=== PATIENT | male | born 1985 | race Caucasian/White ===

== ENCOUNTER 2023-06-16 12:00 | Observation (INO) | payer OTHER ==
[~2023-06-16] VITALS: Ht 182.9 cm; Wt 83.0 kg
[2023-06-16] MEDS: normal saline 1000ML IV soln IV ONE (13:16)
[2023-06-16 13:59] LABS: BASOPHILS # (AUTO) 0.1 X10'3 (0-0.2); BASOPHILS % (AUTO) 0.7 % (0-1); EOSINOPHILS # (AUTO) 0.2 X10'3 (0-0.9); EOSINOPHILS % (AUTO) 2.3 % (0-6); HEMATOCRIT 43.9 % (42.0-52.0); HEMOGLOBIN 14.9 g/dl (14.0-17.9); LYMPHOCYTES # (AUTO) 2.5 X10'3 (1.1-4.8); LYMPHOCYTES % (AUTO) 29.2 % (21-51); MEAN CORPUSCULAR VOLUME 88.1 FL (78-98); MEAN PLATELET VOLUME 9.8 FL (7.4-10.4); MONOCYTES # (AUTO) 0.8 X10'3 (0-0.9); MONOCYTES % (AUTO) 9.6 % (2-12); NEUTROPHILS # (AUTO) 4.9 X10'3 (1.8-7.7); NEUTROPHILS % (AUTO) 58.2 % (42-75); PLATELET COUNT 171 X10'3 (140-440); RED BLOOD COUNT 4.98 X10'6 (4.70-6.10); RED CELL DISTRIBUTION WIDTH 13.5 % (11.5-14.5); WHITE BLOOD COUNT 8.5 X10'3 (4.5-11.0)
[2023-06-16] MEDS: CefTRIAXone 2gm/D5W 50ml BAG 50 ML IV ONE (14:02)
[2023-06-16 14:17] LABS: ANION GAP 10 (8-16); BLOOD UREA NITROGEN 12 MG/DL (7-18); CALCIUM 8.2 MG/DL (8.5-10.1); CHLORIDE 110 MMOL/L (99-107); CREATININE 0.86 MG/DL (0.60-1.10); GLUCOSE 134 MG/DL (70-104); MAGNESIUM 1.7 MG/DL (1.5-2.4); SODIUM 147 MMOL/L (135-145); TOTAL CARBON DIOXIDE 27.3 MMOL/L (24-32); eCRCL 132 ML/MIN; eGFR > 90 ML/MIN
[2023-06-16 14:21] LABS: POTASSIUM 2.9 MMOL/L (3.5-5.1)
[2023-06-16] MEDS ORDERED: mag hydrox/Alum hydrox/simeth 30ml oral suspension PO PRN (15:45)
[2023-06-16] MEDS ORDERED: magnesium 4gm in 100ml NS 100 ML IV PRN (15:45)
[2023-06-16] MEDS ORDERED: acetaminophen 325mg tablet PO PRN ×2 (15:45)
[2023-06-16] MEDS ORDERED: magnesium hydroxide 30ml (MOM) UD suspension PO PRN (15:45)
[2023-06-16] MEDS ORDERED: potassium Cl 20 mEq SR tablet PO PRN (15:45)
[2023-06-16] MEDS ORDERED: magnesium 2GM in 50ml NS 50 ML IV PRN (15:45)
[2023-06-16] MEDS ORDERED: ipratropium/albuterol 3ml nebule NEB PRN (15:45)
[2023-06-16] MEDS ORDERED: ondansetron/PF 4mg/2ml inj IV PRN (15:45)
[2023-06-16] MEDS ORDERED: potassium Cl 40MEQ/1/2NS 520ml 520 ML IV PRN (15:45)
[2023-06-16] MEDS: potassium Cl 20 mEq SR tablet PO PRN (16:29)
[2023-06-16 17:10] LABS: BILIRUBIN,URINE NEGATIVE (Neg); CLARITY,URINE CLEAR (Clear); COLOR,URINE YELLOW (Yellow); GLUCOSE, URINE NEGATIVE (Neg); KETONES,URINE 15 mg/dl (Neg); LEUKOCYTE ESTERASE ,URINE NEGATIVE (Neg); NITRITES, URINE NEGATIVE (Neg); OCCULT BLOOD,URINE SMALL (Neg); PH,URINE 6.5 (4.8-8.0); PROTEIN,URINE NEGATIVE (Neg); UROBILINOGEN,URINE 0.2 E.U/dL (0.2-1.0)
[2023-06-16 17:13] LABS: UA COLLECTION TYPE VOIDED
[2023-06-16 17:14] LABS: BACTERIA,URINE NONE SEEN /HPF (Neg); MUCUS STRANDS NONE SEEN /LPF (Neg); RBC,URINE 0-2 /HPF (0-2); SQUAMOUS EPITHELIAL CELL,UR FEW /LPF (FEW); WBC,URINE NONE SEEN /HPF (0-4)
[2023-06-16 17:19] LABS: URINE AMPHETAMINE SCREEN NEGATIVE (Neg); URINE BARBITUATE SCREEN NEGATIVE (Neg); URINE BENZODIAZEPINES SCREEN NEGATIVE (Neg); URINE CANNABINOID SCREEN POSITIVE (Neg); URINE COCAINE SCREEN NEGATIVE (Neg); URINE METHADONE SCREEN NEGATIVE (Neg); URINE OPIATE SCREEN NEGATIVE (Neg); URINE PHENCYCLIDINE SCREEN NEGATIVE (Neg)
[2023-06-16 17:40] VITALS: BP 121/77; PULSE 66; RESP 16; TEMP 98.3; O2SAT 97
[2023-06-16 19:00] VITALS: RESP 15; O2SAT 95
[2023-06-16 19:16] VITALS: PULSE 98; RESP 12; O2SAT 96
[2023-06-16] MEDS: potassium Cl 20mEq in D5-NS 1,000 ML IV SCH (20:18)
[2023-06-16] MEDS: docusate sod 100mg capsule PO SCH (20:18)
[2023-06-16] MEDS: K and/or MAG REPLACEMENT MC SCH (20:30)
[2023-06-16 22:00] VITALS: BP 97/68; PULSE 99; RESP 17; TEMP 97.5; O2SAT 95
[2023-06-17 05:00] VITALS: BP 94/56; PULSE 89; RESP 18; TEMP 98.3; O2SAT 98
[2023-06-17 07:10] LABS: BASOPHILS # (AUTO) 0.1 X10'3 (0-0.2); BASOPHILS % (AUTO) 0.6 % (0-1); EOSINOPHILS # (AUTO) 0.2 X10'3 (0-0.9); HEMATOCRIT 39.3 % (42.0-52.0); HEMOGLOBIN 13.4 g/dl (14.0-17.9); LYMPHOCYTES # (AUTO) 2.7 X10'3 (1.1-4.8); LYMPHOCYTES % (AUTO) 33.3 % (21-51); MEAN CORPUSCULAR HEMOGLOBIN 30.1 PG (27.0-31.0); MEAN CORPUSCULAR VOLUME 88.7 FL (78-98); MONOCYTES # (AUTO) 0.7 X10'3 (0-0.9); MONOCYTES % (AUTO) 8.3 % (2-12); NEUTROPHILS # (AUTO) 4.4 X10'3 (1.8-7.7); NEUTROPHILS % (AUTO) 54.8 % (42-75); PLATELET COUNT 160 X10'3 (140-440); RED BLOOD COUNT 4.43 X10'6 (4.70-6.10); RED CELL DISTRIBUTION WIDTH 13.6 % (11.5-14.5)
[2023-06-17 07:45] LABS: ALANINE AMINOTRANSFERASE 20 U/L (12-78); ALBUMIN 2.5 G/DL (3.4-5.0); ALBUMIN/GLOBULIN RATIO 0.9 (1.1-1.5); ALKALINE PHOSPHATASE 43 IU/L (46-116); ANION GAP 9 (8-16); ASPARTATE AMINO TRANSFERASE 11 U/L (10-37); BILIRUBIN,TOTAL 0.4 MG/DL (0.1-1.0); BLOOD UREA NITROGEN 6 MG/DL (7-18); BUN/CREATININE RATIO 7.7 (10.0-20.0); CALCIUM 8.3 MG/DL (8.5-10.1); CHLORIDE 113 MMOL/L (99-107); CREATININE 0.78 MG/DL (0.60-1.10); GLUCOSE 104 MG/DL (70-104); MAGNESIUM 1.8 MG/DL (1.5-2.4); POTASSIUM 4.1 MMOL/L (3.5-5.1); SODIUM 146 MMOL/L (135-145); TOTAL CARBON DIOXIDE 24.5 MMOL/L (24-32); TOTAL PROTEIN 5.2 G/DL (6.4-8.2); eCRCL 145 ML/MIN; eGFR > 90 ML/MIN
[2023-06-17 08:00] VITALS: RESP 16; O2SAT 97
[2023-06-17 10:00] VITALS: BP 92/47; PULSE 95; RESP 18; TEMP 98.9; O2SAT 97
[2023-06-17] MEDS ORDERED: NICO1PAT36 TOP (11:17)
[2023-06-17] MEDS: dextrose 5%-water 1,000 ML IV SCH (11:40)
[2023-06-17] MEDS: nicotine 21mg patch - 24 hr TD ONE (11:47)
[2023-06-17 16:06] VITALS: PULSE 107; RESP 16; O2SAT 99
== END 2023-06-17 17:50 | disposition home or self-care (01) ==
LOC: ER 12:01 → ED HOLD 15:49 → ORTHO 4S 17:35
PROVIDERS: ADMIT Family Medicine; ATTEND Family Medicine
DX: G92.8 Other toxic encephalopathy (principal); F15.90 Other stimulant use, unspecified, uncomplicated; E87.6 Hypokalemia; E86.0 Dehydration; E87.0 Hyperosmolality and hypernatremia; E87.8 Other disorders of electrolyte and fluid balance, not elsewhere classified; F17.210 Nicotine dependence, cigarettes, uncomplicated; Z79.899 Other long term (current) drug therapy
CPT/HCPCS: 36415; 71045; 80048; 80053; 80305; 81001; 83605; 83735; 84145; 85025; 87040; 93005; 94760; 96361; 96365; 96366; 96367; 99285; G0378; J0696; J3480; J7030; J7042; J7070